=== PATIENT | female | born 1955 | race Caucasian/White ===

== ENCOUNTER → 2020-04-22 14:37 | Outpatient (CLI) | payer MEDICARE, OTHER, SELFPAY ==
--- NOTE | ~2020-04-22 | XR_ITS ---
XR knee RT min 4V 04/22/2020 15:24 INDICATION: Right knee pain PROCEDURE: 4 views of the right knee COMPARISON: No prior studies for comparison. FINDINGS: Fracture, dislocation or subluxation is not identified. 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 There is patellar remodeling. The soft tissues appear within normal limits. No foreign bodies are i dentified. IMPRESSION: 1: NO ACUTE BONE OR JOINT ABNORMALITY IDENTIFIED. Reviewed, dictated and finalized at location B.
--- NOTE | ~2020-04-22 | XR_ITS ---
XR elbow RT min 3V DATE: 04/22/2020 15:24 INDICATION: Right elbow pain TECHNIQUE: 4 views COMPARISON: None FINDINGS: There is prominent elevation of the anterior and posterior fat pads compatible with elbow j oint effusion. There is severe joint space narrowing as well as spurring at the elbow joint consistent with severe o steoarthritis. No fracture or dislocation is detected. No apparent bone destruction. No periosteal re action. IMPRESSION: Severe osteoarthritis Prominent elbow joint effusion Reviewed, dictated and finalized at location A.
== END ==
DX: M25.561 Pain in right knee (principal); M25.521 Pain in right elbow; M19.021 Primary osteoarthritis, right elbow; M25.421 Effusion, right elbow
CPT/HCPCS: 73080; 73564